=== PATIENT | female | born 1990 | race Two or more races ===

== ENCOUNTER 2018-07-09 18:38 | Emergency (ER) | payer MEDICAID, OTHER ==
[~2018-07-09] VITALS: Ht 172.7 cm; Wt 72.6 kg
[2018-07-09 18:54] VITALS: BP 153/96
== END 2018-07-09 19:24 | disposition left against medical advice (07) ==
LOC: ER 18:42
DX: S90.466A Insect bite (nonvenomous), unspecified lesser toe(s), initial encounter (principal); Z53.21 Procedure and treatment not carried out due to patient leaving prior to being seen by health care provider; W57.XXXA Bitten or stung by nonvenomous insect and other nonvenomous arthropods, initial encounter; Y93.89 Activity, other specified; Y99.8 Other external cause status; Y92.89 Other specified places as the place of occurrence of the external cause